=== PATIENT | male | born 1935 | race Caucasian/White ===

== ENCOUNTER 2019-12-30 12:35 | Emergency (ER) | payer MEDICARE ==
[~2019-12-30] VITALS: Ht 185.4 cm; Wt 81.7 kg
[~2019-12-30 12:35] MED LIST: ASPIR 8181 MG PO; ATENOLOL 25MG T25 M1 PO; CENTRUM SILVER1 EAC2 PO; DEPAKOTE ER500 MG PO; FLOMAX0.4 MG PO; NAMENDA 5 MG TAB5 M1 PO; OLANZAPINE10 M2 IM; ZYPREXA 5 MG TAB5 M1 PO
[2019-12-30 13:02] LABS: ABSOLUTE BASOPHILS 0.1 thou/uL (0.0-0.2); ABSOLUTE EOSINOPHILS 0.4 thou/uL (0.0-0.7); ABSOLUTE LYMPHOCYTES 1.8 thou/uL (0.8-5.3); ABSOLUTE MONOCYTES 0.5 thou/uL (0.0-1.2); ABSOLUTE NEUTROPHILS 5.3 thou/uL (1.6-8.1); BASOPHILS 1.2 %; EOSINOPHILS 4.4 %; HEMATOCRIT 42.9 % (42.0-52.0); LYMPHOCYTES 22.2 %; MCH 30.8 pg (26.0-34.0); MCV 87.8 fL (80.0-100.0); MONOCYTES 6.5 %; MPV 8.4 fl. (7.2-11.1); NUCLEATED RBCS 0 /100WBC; PLATELET COUNT* 149 thou/uL (150-400); POLYS 65.7 %; RBC 4.89 mil/uL (4.50-6.00); RDW-CV 13.6 % (10.5-14.5)
[2019-12-30 13:08] LABS: CALCIUM 8.8 mg/dL (8.5-10.1); CREATININE 1.1 mg/dL (0.6-1.3); POTASSIUM 3.7 mmol/L (3.5-5.1)
[2019-12-30 13:13] LABS: ALBUMIN 3.4 g/dL (3.4-5.0); TOTAL BILIRUBIN 0.7 mg/dL (<0.1-1.0); TOTAL PROTEIN 6.8 g/dL (6.4-8.2)
--- NOTE | 2019-12-30 15:05 | EKG ---
[place] [address] ELECTROCARDIOGRAM REPORT Name: JUAN CARLOSLESLIE Room: [facility].#: [id number] Admission: 12/30/19 Attend Phys: Discharge: Date of : 33 Date of Service: 12/30/19 1339 Report #: [id number] THIS REPORT FOR: //name// [facility] ED Test Date: 2019-12-30 Test Time: 13:39:18 Pat Name: LESLIE RANGEL Department: Room: Gender: [employer] Advisor: [facility] : [id number] Requested By: Erin Morgan Order Number: [id number] MD: Smith Fuentes Measurements Intervals [place] Rate: 67 P: 71 MS: 182 QRS: 12 QRSD: 104 T: 43 QT: 416 QTc: 439 Interpretive Statements Sinus rhythm Anterior infarct, old Baseline wander in lead(s) V1 No previous ECG available for comparison Electronically Signed On 12-30-2019 15:05:03 CDT by Smith Fuentes [email or web address] <ELECTRONICALLY SIGNED> By: Smith Fuentes MD, [facility] 12/30/19 1505 1339 1339 Smith Fuentes MD, [facility] /EPI
[2019-12-30 16:43] LABS: URINE BILIRUBIN NEGATIVE (Negative); URINE BLOOD NEGATIVE (Negative); URINE CLARITY CLEAR; URINE COLOR YELLOW; URINE GLUCOSE-RANDOM NEGATIVE (Negative); URINE KETONES TRACE (Negative); URINE LEUKOCYTES-REFLEX NEGATIVE (Negative); URINE NITRITE-REFLEX NEGATIVE (Negative); URINE PROTEIN NEGATIVE (Negative); URINE SPECIFIC GRAVITY 1.025 (1.005-1.030); URINE UROBILINOGEN 0.2 E.U./dl (0.2-1.0)
[2019-12-30 19:05] VITALS: BP 120/85
== END 2019-12-30 19:07 | disposition home or self-care (01) ==
LOC: M.ERS 12:35
PROVIDERS: Nurse Practitioner Family
DX: M79.604 Pain in right leg (principal); I10 Essential (primary) hypertension; N40.0 Benign prostatic hyperplasia without lower urinary tract symptoms; W18.39XA Other fall on same level, initial encounter; Y93.89 Activity, other specified; Y92.128 Other place in nursing home as the place of occurrence of the external cause; Y99.8 Other external cause status